=== PATIENT | female | born 1995 | race Caucasian/White ===

== ENCOUNTER 2016-07-20 12:52 | Emergency (ER) | payer BC ==
[~2016-07-20] VITALS: Ht 165.1 cm; Wt 90.0 kg
[~2016-07-20 12:52] MED LIST: NO CURRENT MEDS
[2016-07-20 12:56] VITALS: Ht 165.1 cm; Wt 90.0 kg
--- NOTE | 2016-07-20 14:15 | ERD ---
ER Documentation Chief Complaint Date/Time DATE: 07/20/16 TIME: 14:13 Chief Complaint LEFT EYE REDNESS HPI This is a 21-year-old female who presents the emergency department today with her friend complaining of left eye redness for the past 2 days. Patient wears glasses normally. Denies contact use. Patient states that a couple of days ago she was diagnosed with strep throat was given amoxicillin by her clinic. She states that she does have some blurriness in her eye but denies any foreign body sensation. Denies any floaters. Denies any itching or purulent drainage. Denies any fevers or chills. ROS All systems reviewed and are negative except as per history of present illness. Medications Home Meds Active Scripts Acetaminophen* (Tylophen*) 500 Mg Capsule, 1 CAP PO Q6H Y for PAIN AND OR ELEVATED TEMP, #30 CAP Prov:BRUCE SAUNDERS PA-C 07/20/16 Polymyxin B Sulfate-TMP* (Polymyxin B-TMP Eye Drops*) 10 Ml Drops, 1 DROP LEFT EYE QID for 7 Days, EA Prov:BRUCE SAUNDERS PA-C 07/20/16 Reported Medications [No Current Meds] No Conflict Check 07/18/09 Allergies Allergies: Coded Allergies: No Known Drug Allergies (Verified Allergy, Mild, 07/18/09) PMhx/Soc Medical and Surgical Hx: pt denies Medical Hx, pt denies Surgical Hx History of Surgery: No Hx Neurological Disorder: No Hx Respiratory Disorders: No Hx Cardiac Disorders: No Hx Miscellaneous Medical Probl: No Hx Alcohol Use: No Hx Substance Use: No Hx Tobacco Use: No Physical Exam Vitals Vital Signs Date Time Temp Pulse Resp B/P Pulse Ox O2 Delivery O2 Flow Rate FiO2 07/20/16 12:56 98.1 83 20 133/83 99 Physical Exam Const: No acute distress Head: Atraumatic Eyes: Right eye conjunctival normal. Left eye conjunctival erythema along sclera on the bottom part of eye. PERRLA. EOM intact ENT: Ears bilateral cerumen impaction. Nose no drainage. Throat no erythema no exudate Neck: Full range of motion..~ No meningismus. Resp: Clear to auscultation bilaterally Cardio: Regular rate and rhythm, no murmurs Skin: No petechiae or rashes Neur: Awake and alert Psych: Normal Mood and Affect Results 24 hrs Current Medications Medications (Trade) Dose Ordered Sig/Prashanth Route PRN Reason Start Time Stop Time Status Last Admin Dose Admin Tetracaine HCl (Tetracaine 0.5% Steri-Unit Jackeline) 1 drop ONCE ONCE LEFT EYE 07/20/16 14:30 5 14:31 DC Fluorescein Sodium (Ouuco-C-Sjewa) 1 strip ONCE ONCE LEFT EYE 07/20/16 14:30 07/20/16 14:31 DC Procedures/MDM This is a 21-year-old female who presents to the emergency department today complaining of painless right eye. Visual acuity left eye 20/50 Right eye 20/40 Bilaterally 20/30 Almonte lamp with fluorescein stain shows no evidence of foreign body or corneal abrasion Delonte-Pen pressures right eye 23, 23 Left eye, 23,23 Patient symptoms at this time is consistent with conjunctivitis, likely viral however I will give the patient a prescription for Polytrim to treat possible bacterial conjunctivitis. Low suspicion for globe rupture, hyphema, acute narrow angle glaucoma, foreign body, corneal abrasion Patient was also given a prescription for Tylenol and instructed to follow-up with her eye doctor on Friday. Patient understood and agreed with the plan. At this time the patient is stable for discharge and outpatient management. Patient should follow up with their PCP in the next 1-2 days. They may return to the emergency department sooner for any persistent or worsening of symptoms. Patient understood and agreed with the plan. Discussed the patient with Dr. Batista and he is in agreement with the plan. Departure Diagnosis: Primary Impression: Eye problem Condition: BRUCE Phillips PA-C July 20, 2016 14:15
[2016-07-20] MEDS ORDERED: TETRACAINE 0.5% 4 ML OPH LEFT EYE ONE (14:30)
[2016-07-20] MEDS ORDERED: FLUORESCEIN STRIP LEFT EYE ONE (14:30)
[2016-07-20] MEDS ORDERED: POLY10DR19 LEFT EYE (14:55)
[2016-07-20] MEDS ORDERED: ACET500C5 PO (14:55)
[2016-07-20 15:02] VITALS: TEMP 98.4
== END 2016-07-20 15:02 | disposition home or self-care (01) ==
LOC: FTE 12:52
DX: H57.8 Other specified disorders of eye and adnexa (principal)
CPT/HCPCS: Z7502; Z7610; 99283

== ENCOUNTER 2017-03-13 21:08 | Emergency (ER) | END 2017-03-14 03:00 | disposition home or self-care (01) ==